=== PATIENT | female | born 1945 | race Caucasian/White ===

== ENCOUNTER 2017-12-06 16:13 | Emergency (ER) | payer OTHER ==
[2017-12-06] MEDS ORDERED: ASPERCREME LIDOCA41 TOP (16:49)
[2017-12-06] MEDS ORDERED: CYCLOBENZAPR5 MG PO (16:49)
[2017-12-06] MEDS ORDERED: MOTRIN400 MG PO (16:49)
[2017-12-06] MEDS ORDERED: ATIVAN1 MG PO (17:07)
[2017-12-06] MEDS ORDERED: PANTOPRAZOLE SO40 MG PO (17:08)
[2017-12-06] MEDS ORDERED: CELEBREX100 MG PO (17:08)
[2017-12-06] MEDS ORDERED: PRISTIQ50 MG PO (17:08)
[2017-12-06] MEDS ORDERED: TRAZODONE50 MG PO (17:09)
[2017-12-06 17:18] VITALS: BP 146/93
== END 2017-12-06 17:35 | disposition home or self-care (01) | DRG 552 ==
LOC: ED 16:13
DX: M62.830 Muscle spasm of back (principal); F41.9 Anxiety disorder, unspecified; G89.29 Other chronic pain; M19.90 Unspecified osteoarthritis, unspecified site; M54.9 Dorsalgia, unspecified

== ENCOUNTER 2024-11-28 11:31 | Observation (INO) | payer OTHER ==
[2024-11-28] VITALS (14 sets, daily range): BP systolic 117–177; BP diastolic 59–87
[~2024-11-28] VITALS: Ht 167.6 cm; Wt 60.0 kg
[~2024-11-28 11:31] MED LIST: ASPERCREME LIDOCA41 TOP; ATIVAN1 MG PO; CELEBREX100 MG PO; CYCLOBENZAPR5 MG PO; MOTRIN400 MG PO; PANTOPRAZOLE SO40 MG PO; PRISTIQ50 MG PO; TRAZODONE50 MG PO
--- NOTE | 2024-11-28 11:35 | NUR ---
PT BROUGHT BACK TO ER ROOM 10 VIA WHEELCHAIR, PTS SPOUSE AT SIDE
[2024-11-28] MEDS ORDERED: ASPIRIN 81 MG/TAB PO ONE (11:50)
[2024-11-28 12:11] LABS: EOS% 1.7 % (0-8); HEMATOCRIT 36.3 % (37.0-47.0); HEMOGLOBIN 12.1 g/dl (12.0-16.0); IMMATURE GRANULOCYTES 0.2 % (0.0-5.0); LYMPH% 25.4 % (15-41); MEAN CELL VOLUME 91.2 fL CALC (80.0-100.0); MEAN CORPUSCULAR HGB 30.4 pG CALC (26.0-32.0); MEAN CORPUSCULAR HGB CONC 33.3 g/dL CAL (32.0-36.0); NEUT# 2.52 thou/uL (2.00-7.15); NEUT% 61.7 % (42-76); RED BLOOD COUNT 3.98 mill/uL (4.20-5.60); RED CELL DISTRI WIDTH 13.4 % (11.5-15.5)
[2024-11-28 12:24] LABS: ALBUMIN 3.7 g/dL (3.2-5.0); ALKALINE PHOSPHATASE 52 u/l (38-126); ANION GAP 10 (6-22 (CALC)); BILIRUBIN, TOTAL 0.6 mg/dL (0.02-1.3); BUN 23 mg/dL (8-23); BUN/CREATININE RATIO 26 (12-20 (CALC)); CARBON DIOXIDE 27 mmol/l (22-30); CHLORIDE 105 mmol/l (95-108); CREATININE 0.9 mg/dL (0.5-1.0); ESTIMATED GFR 65 ML/MIN (>=90 (CALC)); SGOT/AST 32 u/l (9-36); SODIUM 138 mmol/l (137-146); TOTAL PROTEIN 6.5 g/dL (6.3-8.2)
--- NOTE | 2024-11-28 12:29 | NUR ---
PT RESTING, NO NEEDS AT THIS TIME.
[2024-11-28] MEDS ORDERED: TRINTELLIX5 MG (12:45)
--- NOTE | 2024-11-28 14:58 | NUR ---
PT ASSISTED TO THE RESTROOM, NO OTHER NEEDS AT THIS TIME.
[2024-11-28] MEDS ORDERED: LIDOCAINE VISCOUS 2% 15 ML UDC PO ONE (15:05)
[2024-11-28] MEDS ORDERED: ALUM & MAG HYDROX-SIMETHICONE 30 ML PO ONE (15:05)
[2024-11-28] MEDS ORDERED: ACETAMINOPHEN 325 MG/TAB PO PRN (16:10)
[2024-11-28] MEDS ORDERED: MAGNESIUM HYDROXIDE 30 ML UDC PO PRN (16:10)
--- NOTE | 2024-11-28 18:03 | NUR ---
PT REPORT TO CHANDLER SANCHEZ. PT PLACED ON #23 TELE BOX. PT TRANSPORTED VIA WC TO ROOM 280. TRANSFERED CARE OF PT.
--- NOTE | 2024-11-28 18:08 | NUR ---
PATIENT WEIGHT, AND VITAL SIGNS; WEIGHT-60KG TEMP-96.8 PULSE-58 RESP-18 B/P-178/67 O2-99 NURSE NOTIFIED OF PATIENT BLOOD PRESSURE.
--- NOTE | 2024-11-28 19:09 | NUR ---
PATIENT OBSERVED RESTING IN BED. NO DISTRESS NOTED. NO COMPLAINTS OF PAIN. NEEDS REMAINDING TO USE CALL TANG. DENIES NEEDING ANYTHING AT THIS TIME. BED IN LOW POSITION. CALL TANG IN REACH. BED ALARM ACTIVE FOR SAFETY.
--- NOTE | 2024-11-28 19:25 | NUR ---
PT IS ALERT TIMES 3 SHE CAN MAKE HER NEEDS KNOWN. PT IS A NEW ADMITTED FROM THE ER SECONDARY TO CHEST PAINS. UPON ARRIVAL TO THE UNIT PT HAS NO C/O PAIN AT THIS TIME. PT SKIN IS INTACT AND LUNGS ARE CLEAR. PT WAS TOILETED MAT REQUESTED AND THEN SERVED DINNER. PT IS R/A AND IS ON TELE MONITORING. PT WAS ORINENTED TO THE UNIT AND THE SAFETY OF USING HER CALL TANG. PT CALL TANG IS AT HER REACH ALL SAFETY MEASURES ARE IN PLACE.
[2024-11-28] MEDS ORDERED: hydrALAZINE HCL 20 MG/ML VIAL(1 ML) IV PRN (19:55)
[2024-11-28] MEDS ORDERED: Pantoprazole Sodium 40 MG VIAL (Protonix) IV SCH ×2 (19:55→21:00)
--- NOTE | 2024-11-28 19:58 | NUR ---
SPOKE WITH FLOOR SANDING MACHINE OPERATOR PROVIDER ABOUT PATIENT HOME MEDS. PER PATIENT SHE SELF MEDICATED AT 1800. MEDS REMOVED FROM ROOM AND SEALED IN MED ROOM. PROVIDER ALSO TOLD PATIENT IN ED NOT TO SELF MEDICATE AFTER SHE TOOM MEDS IN ED AT NOON.
[2024-11-28] MEDS ORDERED: ENOXAPARIN SODIUM 40 MG/0.4 ML SYR SC SCH (21:00)
[2024-11-28] MEDS ORDERED: traZODone HCL 50 MG/TAB PO SCH (21:00)
--- NOTE | 2024-11-29 00:22 | NUR ---
PATIENT REMAINS RESTING IN BED. NO COMPLAINTS OF CHEST PAIN. DENIES NEEDING ANYTHING AT THIS TIME. BED REMAINS IN LOW POSITION. CALL TANG IN REACH. BED ALARM REMAINS ACTIVE FOR SAFETY.
[2024-11-29 03:25] VITALS: BP 135/72
--- NOTE | 2024-11-29 04:30 | NUR ---
PATIENT REMAINS RESTING. NO COMPLAINTS OF CHEST PAIN. CALL TANG AND BELONGINGS WITHIN REACH.
[2024-11-29 06:32] LABS: BASO% 0.9 % (0-3); EOS% 2.9 % (0-8); HEMATOCRIT 39.1 % (37.0-47.0); HEMOGLOBIN 12.8 g/dl (12.0-16.0); IMMATURE GRANULOCYTES 0.2 % (0.0-5.0); MEAN CELL VOLUME 91.4 fL CALC (80.0-100.0); MEAN CORPUSCULAR HGB 29.9 pG CALC (26.0-32.0); MEAN CORPUSCULAR HGB CONC 32.7 g/dL CAL (32.0-36.0); MONO% 11.3 % (2-13); NEUT# 2.34 thou/uL (2.00-7.15); NEUT% 52.7 % (42-76); RED BLOOD COUNT 4.28 mill/uL (4.20-5.60); RED CELL DISTRI WIDTH 13.4 % (11.5-15.5)
[2024-11-29 06:50] LABS: ALBUMIN 3.3 g/dL (3.2-5.0); BILIRUBIN, TOTAL 0.5 mg/dL (0.02-1.3); CHOLESTEROL HDL RATIO 4.2 (<4.4 (CALC)); CREATININE 0.8 mg/dL (0.5-1.0); MAGNESIUM 2.2 mg/dL (1.6-2.3); POTASSIUM 4.1 mmol/l (3.5-5.1); TOTAL PROTEIN 6.1 g/dL (6.3-8.2)
[2024-11-29 07:32] VITALS: BP 155/63
--- NOTE | 2024-11-29 08:15 | NUR ---
pt is found to be resting in bed. pt is A&o x4; on tele-stable. pt can move all extremites; indep. in room. plan of care was reviewed; no further questions at this time. call light is within reach.
[2024-11-29] MEDS ORDERED: PANTOPRAZOLE SODIUM Sesquihydr 40 MG/TAB PO SCH (09:00)
--- NOTE | 2024-11-29 10:25 | NUR ---
Discharge instructions given. Patient verbalizes understanding of same. Discharged in stable condition via Wheelchair to Home with spouse. All belongings sent with pt.IV OUT; TELE RETURNED TO ER.
== END 2024-11-29 09:55 | disposition home or self-care (01) | DRG 313 ==
LOC: ED 11:31 → ED-I 15:00 → ED 15:41 → MS2 15:42
PROVIDERS: Family Medicine; Nurse Practitioner Family; ADMIT Internal Medicine; ATTEND Internal Medicine
DX: R07.89 Other chest pain (principal); R10.13 Epigastric pain; K21.9 Gastro-esophageal reflux disease without esophagitis; F41.9 Anxiety disorder, unspecified; F32.A Depression, unspecified
CPT/HCPCS: G0378; J1650; J2470